=== PATIENT | male | born 1975 | race Caucasian/White ===

== ENCOUNTER 2021-01-06 15:45 | Outpatient (CLI) | payer BC, SELFPAY | END 2021-01-06 15:46 | disposition home or self-care (01) | LOC: ANHCOVIDVC 15:45 | PROVIDERS: PCP Internal Medicine | DX: Z23 Encounter for immunization (principal) | CPT/HCPCS: 0001A; 91300 ==

== ENCOUNTER 2021-01-27 15:43 | Outpatient (CLI) | payer BC, SELFPAY | END 2021-01-27 15:44 | disposition home or self-care (01) | LOC: ANHCOVIDVC 15:43 | PROVIDERS: PCP Internal Medicine | DX: Z23 Encounter for immunization (principal) | CPT/HCPCS: 0002A; 91300 ==

== ENCOUNTER 2021-10-12 05:19 | Emergency (ER) | payer BC, SELFPAY ==
[2021-10-12 05:31] VITALS: BP 185/117; PULSE 62; RESP 18; TEMP 36.7; O2SAT 96
--- NOTE | 2021-10-12 05:42 | ED.HA ---
HPI - Headache General Chief Complaint: Headache Stated Complaint: migraine x 4 days Time Seen by Provider: 10/12/21 05:31 Source: patient History of Present Illness HPI Narrative: Patient presents with headache. Patient reports a history of migraines since he was a teenager. Reports he had a headache for the past 4 days getting progressively worse. He takes his prophylactic migraine medication every day and he been taking his breakthrough medications without relief. This morning woke up and had some nausea and vomiting so he came to the ER for further evaluation. Reports has been many years since he has had a migraine like this before. He denies any focal numbness or weakness. Denies any changes in vision she denies any diarrhea or fevers denies any recent spinal instrumentation. Related Data Allergies Allergy/AdvReac Type Severity Reaction Status Date / Time latex Allergy Unknown Rash Verified 10/12/21 05:37 pecan nut Allergy Unknown Swelling Verified 10/12/21 05:37 tree nut Allergy Unknown Swelling Verified 10/12/21 05:37 turkey Allergy Unknown SEVERE Verified 10/12/21 05:37 VOMITING [place] Allergy Unknown Swelling Uncoded 10/12/21 05:37 Chocolate Allergy Unknown Swelling Uncoded 10/12/21 05:37 [place] Allergy Unknown Swelling Uncoded 10/12/21 05:37 MAGNESIUM STEARATE AdvReac Unknown Headache Uncoded 08/25/15 09:37 Review of Systems Review of Systems: CONSTITUTIONAL: Denies fever, chills, or sweats. EYES: Denies visual changes, redness, or discharge. ENT: Denies rhinorrhea, congestion, sore throat, or otalgia. CARDIOVASCULAR: Denies chest pain, palpitations, or edema. RESPIRATORY: Denies cough or dyspnea. GASTROINTESTINAL: Denies abdominal pain, nausea, vomiting, or diarrhea. GENITOURINARY: Denies dysuria or hematuria. SKIN: Denies rash or itching. MUSCULOSKELETAL: Denies back pain, joint pain, or myalgia. NEUROLOGIC: Denies numbness, dizziness, or weakness. PSYCHIATRIC: Denies anxiety or depression. All systems reviewed & are unremarkable except as noted in HPI and below PMFSH Past Medical History Medical History (Updated 10/12/21 @ 05:47 by Yobany Tinoco MD) Migraines Family History Family History Other Family history of cardiovascular disease Hypertension Social History Social History Alcohol intake: current Exam Narrative: GENERAL: Well-appearing, well-nourished, and in no acute distress. HEAD: Normocephalic, atraumatic. EYES: PERRLA and EOMI. ENT: Nares clear, no rhinorrhea or epistaxis. Mucous membranes moist. NECK: Supple. No masses. No JVD EXTREMITIES: Normal range of motion. No edema. SKIN: Warm, dry, no rash. NEURO: Cranial nerves II through XII are intact patient has 5 out of 5 strength in all extremities sensation intact to light touch in all extremities alert and oriented x3. PSYCH: Normal mood and affect. Course Reevaluation(s) Reevaluation #1: Patient reports large improvement in symptoms and feels he can manage her symptoms at home Date: 10/12/21 Time: 06:37 Vital Signs Vital signs: Vital Signs Temperature 36.7 C 10/12/21 05:31 Pulse Rate 62 10/12/21 05:31 Respiratory Rate 18 10/12/21 05:31 Blood Pressure 185/117 H 10/12/21 05:31 Pulse Oximetry 96 10/12/21 05:31 Temperature 36.7 C 10/12/21 05:31 Pulse Rate 71 10/12/21 06:25 Respiratory Rate 15 10/12/21 06:25 Blood Pressure 158/100 H 10/12/21 06:25 Pulse Oximetry 96 10/12/21 06:25 MDM - Headache MDM Narrative Medical decision making narrative: H&P as above, vss, pt looks clinically well, exam without focal neurological deficits, labs/img considered, symptomatic relief available as needed, on reevaluation pt continues to looks clinically well reports large improvement in symptoms. Suspect migraine headache, dns intracranial hemorrhage encephalitis, meningitis, mass, CVA. plan to
[2021-10-12] MEDS: SODIUM CHLORIDE 0.9% IV 1,000 ML 999 ML IV CONT (05:51)
[2021-10-12] MEDS: PROCHLORPERAZINE EDISYLATE 10 MG/2 ML VIAL IV PUSH (05:52)
[2021-10-12] MEDS: diphenhydrAMINE HCl INJ 50 MG/ML VIAL 25 MG IV PUSH (05:52)
[2021-10-12] MEDS: KETOROLAC 15 MG/ML VIAL (*BKC) IV PUSH (05:53)
[2021-10-12 06:25] VITALS: BP 158/100; PULSE 71; RESP 15; O2SAT 96
== END 2021-10-12 06:53 | disposition home or self-care (01) ==
PROVIDERS: Emergency Provider Emergency Medicine
DX: G43.909 Migraine, unspecified, not intractable, without status migrainosus (principal)
CPT/HCPCS: 96361; 96365; 96375; 99284; J0131; J0780; J1200; J1885; J7030